=== PATIENT | male | born 2000 | race Caucasian/White ===

== ENCOUNTER 2020-04-27 09:19 | Emergency (ER) | payer MEDICAID ==
[~2020-04-27] VITALS: Ht 180.3 cm; Wt 84.7 kg
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
[2020-04-27 10:10] LABS: BASO % 0 % (0-3); EOS # 0.1 x10^3/uL (0.0-0.7); EOS % 1 % (0-3); HEMATOCRIT 52.3 % (39.0-53.0); HEMOGLOBIN 18.2 g/dL (13.0-17.5); LYMPH # 1.7 x10^3/uL (1.0-4.8); LYMPH % 16 % (24-48); MEAN CORPUSCULAR HEMOGLOBIN 30 pg (25-35); MEAN CORPUSCULAR HGB CONC 35 g/dL (31-37); MEAN CORPUSCULAR VOLUME 87 fL (79-100); MONO # 0.7 x10^3/uL (0.0-1.1); MONO % 6 % (0-9); NEUT # 8.3 x10^3uL (1.8-7.7); NEUT % 77 % (31-73); PLATELET COUNT 268 x10^3/uL (140-400); RED BLOOD COUNT 5.99 x10^6/uL (4.30-5.70); RED CELL DISTRIBUTION WIDTH 13.6 % (11.5-14.5); WHITE BLOOD COUNT 10.8 x10^3/uL (4.0-11.0)
[2020-04-27 10:11] LABS: CALCIUM 9.6 mg/dL (8.5-10.1); CREATININE 1.1 mg/dL (0.7-1.3); GFR 85.3; POTASSIUM 3.6 mmol/L (3.5-5.1)
[2020-04-27 10:16] LABS: ALBUMIN 4.3 g/dL (3.4-5.0); ALBUMIN/GLOBULIN RATIO 1.2 (1.0-1.7); TOTAL BILIRUBIN 1.1 mg/dL (0.2-1.0)
[2020-04-27 10:34] LABS: BARBITURATES NEG (NEG); BENZODIAZEPINES NEG (NEG); CANNABINOIDS NEG (NEG); COCAINE NEG (NEG); METHADONE NEG (NEG); OPIATES NEG (NEG); PHENCYCLIDINE NEG (NEG)
[2020-04-27 10:35] LABS: AMPHETAMINE/METHAMPHETAMINE NEG (NEG)
[2020-04-27 10:35] LABS: ACETAMIN < 2.0 mcg/mL (10-30); SALIC < 2.8 mg/dL (2.8-20.0)
[2020-04-27 10:36] LABS: ETHANOL < 10 mg/dL (0-10)
[2020-04-27 10:44] LABS: BILIRUBIN,URINE NEG (NEG); CLARITY,URINE CLEAR; COLOR,URINE YELLOW; GLUCOSE,URINE NEG (NEG)
[2020-04-27 10:45] LABS: AMORPHOUS SEDIMENT,UR PRESENT /HPF; BACTERIA,URINE 0 /HPF (0-FEW); NITRITE,URINE NEG (NEG); RBC,URINE 0 /HPF (0-2); SQUAMOUS EPITHELIAL CELL,UR OCC /LPF; UROBILINOGEN,URINE 0.2 mg/dL (0.2 mg/dL); WBC,URINE 0 /HPF (0-4)
[2020-04-27] MEDS ORDERED: METH5TAB4 PO (18:14)
[2020-04-27 18:50] VITALS: BP 131/65
== END 2020-04-27 19:45 | disposition short-term general hospital (02) ==
LOC: ER 09:19
DX: T43.632A Poisoning by methylphenidate, intentional self-harm, initial encounter (principal); R45.851 Suicidal ideations; Z20.828 Contact with and (suspected) exposure to other viral communicable diseases; Y92.89 Other specified places as the place of occurrence of the external cause
CPT/HCPCS: 36415; 80053; 80307; 80329; 81001; 85025; 87426; 99285; G0480; U0003